=== PATIENT | male | born 1950 | race Caucasian/White ===

== ENCOUNTER 2022-10-13 18:53 | Emergency (ER) | payer OTHER ==
[~2022-10-13] VITALS: Ht 185.4 cm; Wt 83.9 kg
[2022-10-13] MEDS ORDERED: AMBIEN10 MG PO ×2 (19:08→22:16)
[2022-10-13] MEDS ORDERED: CLONAZEPAM1 M1 PO (19:09)
[2022-10-13] MEDS ORDERED: TAMS0.4C PO (19:09)
[2022-10-14] MEDS ORDERED: AMBIEN10 MG PO (14:51)
== END 2022-10-13 22:21 | disposition home or self-care (01) ==
LOC: ER 18:53
DX: M79.671 Pain in right foot (principal)

== ENCOUNTER 2022-10-14 12:59 | Emergency (ER) | payer OTHER ==
[~2022-10-14] VITALS: Ht 185.4 cm; Wt 83.9 kg
[~2022-10-14 12:59] MED LIST: AMBIEN10 MG PO; CLONAZEPAM1 M1 PO; TAMS0.4C PO
[2022-10-14] MEDS ORDERED: AMBIEN10 MG PO (14:51)
== END 2022-10-14 14:56 | disposition home or self-care (01) ==
LOC: ER 12:59
DX: G47.09 Other insomnia (principal)

== ENCOUNTER 2022-10-22 10:02 | Emergency (ER) | payer OTHER ==
[~2022-10-22] VITALS: Ht 185.4 cm; Wt 81.6 kg
[2022-10-22] MEDS ORDERED: KETO10TA2 PO (12:47)
== END 2022-10-22 12:54 | disposition home or self-care (01) ==
LOC: ER 10:02
DX: M79.671 Pain in right foot (principal)

== ENCOUNTER 2023-02-15 18:19 | Emergency (ER) | payer OTHER ==
[~2023-02-15] VITALS: Ht 182.9 cm; Wt 88.5 kg
[~2023-02-15 18:19] MED LIST changes: +KETO10TA2 PO
== END 2023-02-15 22:25 | disposition home or self-care (01) ==
LOC: ER 18:19
DX: R10.32 Left lower quadrant pain (principal); R10.9 Unspecified abdominal pain; I10 Essential (primary) hypertension

== ENCOUNTER 2023-02-27 13:59 | Emergency (ER) | payer OTHER ==
[~2023-02-27] VITALS: Ht 182.9 cm; Wt 86.2 kg
== END 2023-02-27 17:01 | disposition home or self-care (01) ==
LOC: ER 13:59
DX: N40.0 Benign prostatic hyperplasia without lower urinary tract symptoms (principal); N39.0 Urinary tract infection, site not specified; R51.9 Headache, unspecified

== ENCOUNTER 2023-03-14 09:37 | Emergency (ER) | payer OTHER ==
[~2023-03-14] VITALS: Ht 182.9 cm; Wt 90.7 kg
== END 2023-03-14 10:50 | disposition home or self-care (01) ==
LOC: ER 09:37
DX: M62.838 Other muscle spasm (principal)

== ENCOUNTER 2023-05-15 10:28 | Emergency (ER) | payer OTHER ==
[~2023-05-15] VITALS: Ht 185.4 cm; Wt 86.2 kg
[2023-05-15] MEDS ORDERED: ELIQUIS2.5 MG PO ×2 (11:03→11:16)
[2023-05-15] MEDS ORDERED: CITALOPRAM HBR20 MG PO (11:03)
[2023-05-15] MEDS ORDERED: TAMSULOSIN HCL0.4 MG PO (11:04)
[2023-05-15] MEDS ORDERED: AMBIEN10 MG PO (11:04)
[2023-05-15] MEDS ORDERED: LISINOPRIL10 MG PO (11:05)
[2023-05-15] MEDS ORDERED: TAMS0.4C PO (11:16)
== END 2023-05-15 11:40 | disposition home or self-care (01) ==
LOC: ER 10:28
DX: N40.0 Benign prostatic hyperplasia without lower urinary tract symptoms (principal); I10 Essential (primary) hypertension

== ENCOUNTER → 2023-07-10 | Outpatient (CLI) | payer OTHER ==
[~2023-07-10] MED LIST changes: +CITALOPRAM HBR20 MG PO; +ELIQUIS2.5 MG PO; +LISINOPRIL10 MG PO; +TAMSULOSIN HCL0.4 MG PO
== END | disposition home or self-care (01) ==
LOC: SONOGRAMA 13:34
DX: M75.121 Complete rotator cuff tear or rupture of right shoulder, not specified as traumatic (principal); S40.011A Contusion of right shoulder, initial encounter; S13.4XXA Sprain of ligaments of cervical spine, initial encounter

== ENCOUNTER 2023-08-25 17:11 | Emergency (ER) | payer OTHER ==
[~2023-08-25] VITALS: Ht 185.4 cm; Wt 95.3 kg
[2023-08-25 18:37] LABS: PH,URINE 7.5 (5.0-8.0); URINE APPEARANCE Clear; URINE BILIRRUBIN Negative (NEGATIVE); URINE BLOOD Negative; URINE COLOR Yellow; URINE GLUCOSE Negative (NEGATIVE); URINE LEUKOCYTE Trace; URINE NITRATE Negative; URINE PROTEIN Negative (NEGATIVE)
[2023-08-25 18:40] LABS: HEMATOCRIT 38.7 % (39.0-48.0); HEMOGLOBIN 13.8 g/dL (13-16.00); MEAN CELL VOLUME 98.2 fL (80.0-100.00); MEAN CORPUSCULAR HEMOGLOBIN 35.1 pg (27.00-32.0); MEAN CORPUSCULAR HGB CONC 35.8 g/dl (32.0-36.0); PLATELET COUNT 136 K/uL (150-450); RED BLOOD COUNT 3.94 M/uL (4.00-6.00); RED CELL DISTRIBUTION WIDTH 14.1 % (11.5-14.5)
[2023-08-25 18:41] LABS: ERYTHROCYTE SEDIMENTATION RATE < 1 mm/hr; URINE RBC 12.9 uL (0.0-20.8); URINE WBC 5.5 uL (0.0-23.2)
[2023-08-25 18:42] LABS: URINE BACTERIA 2.5 uL (0.0-1933); URINE EPITHELIAL CELLS 0.4 uL (0.0-38.8)
[2023-08-25 18:54] LABS: INR 1.08; PARTIAL THROMBOPLASTIN TIME 31.1 SECONDS (22.0-34.0); PROTHROMBIN TIME 11.3 SECONDS (9.0-11.5)
[2023-08-25 18:59] LABS: ALBUMIN 3.8 gm/dL (3.4-5.0); BILIRUBIN TOTAL 0.98 mg/dL (0.3-1.2); CALCIUM 9.6 mg/dL (8.5-10.1); CREATININE SERUM 1.08 mg/dL (0.70-1.30); GFR 67.21; GLOBULINA 3.1 G/DL (2.4-3.5); POTASSIUM 4.22 mEq/L (3.5-5.1); TOTAL PROTEIN 6.9 gm/dL (6.4-8.2)
[2023-08-25 19:14] LABS: C-REACTIVE PROTEIN 1.15 MG/DL (0.00-0.29)
== END 2023-08-25 22:29 | disposition home or self-care (01) ==
LOC: ER 17:11
PROVIDERS: General Practice
DX: L03.90 Cellulitis, unspecified (principal); Z20.822 Contact with and (suspected) exposure to COVID-19; I10 Essential (primary) hypertension
CPT/HCPCS: 36415; 73590; 96365; 99284; J3370